=== PATIENT | male | born 1990 | race Caucasian/White ===

== ENCOUNTER 2016-07-13 06:47 | Emergency (ER) | payer BC ==
[2016-07-13 07:02] VITALS: BP 136/76; PULSE 74; RESP 16; TEMP 97.5
[2016-07-13] MEDS ORDERED: KETOROLAC 60 MG/2 ML VIAL IM STA (07:31)
--- NOTE | 2016-07-13 07:35 | ED ---
General Adult HPI - General Chief complaint: Back Pain/Injury Stated complaint: back pain Time Seen by Provider: 07/13/16 07:14 Source: patient, police, RN notes reviewed, old records reviewed Mode of arrival: ambulatory Limitations: no limitations - History of Present Illness Initial comments: This is a 26-year-old male the ER for evaluation. This patient comes in for evaluation of back pain. Patient's neck pain isn't paraspinal lumbar muscles, worse with movement. Worse with bending forward. Worse with sitting up. At about the midpoint of 90. Patient had no trauma, wasn't active accident, while working out. No loss of bowel or bladder, no neurological deficit. Patient has history of similar symptoms which occurred in a basket walking, he did have full testing and with the x-rays. - Related Data Previous Rx's Medication Instructions Recorded Acetaminophen with Codeine 1 tab PO HS PRN #20 tab 07/13/16 [Tylenol w/codeine #3] Diazepam [Valium] 5 mg PO HS #20 tab 07/13/16 Naproxen [Naprosyn] 500 mg PO Q12HR PRN #30 tab 07/13/16 Allergies Allergy/AdvReac Type Severity Reaction Status Date / Time No Known Allergies Allergy Verified 07/13/16 07:03 Review of Systems ROS Statement: Those systems with pertinent positive or pertinent negative responses have been documented in the HPI. ROS Other: All systems not noted in ROS Statement are negative. Past Medical History Past Medical History: No Reported History Past Surgical History: No Surgical Hx Reported Past Psychological History: No Psychological Hx Reported Smoking Status: Never smoker Past Alcohol Use History: None Reported Past Drug Use History: None Reported General Exam Limitations: no limitations General appearance: alert, in no apparent distress Head exam: Present: atraumatic, normocephalic, normal inspection Eye exam: Present: normal appearance, PERRL, EOMI. Absent: scleral icterus, conjunctival injection, periorbital swelling ENT exam: Present: normal exam, mucous membranes moist Neck exam: Present: normal inspection. Absent: tenderness, meningismus, lymphadenopathy Respiratory exam: Present: normal lung sounds bilaterally. Absent: respiratory distress, wheezes, rales, rhonchi, stridor Cardiovascular Exam: Present: regular rate, normal rhythm, normal heart sounds. Absent: systolic murmur, diastolic murmur, rubs, gallop, clicks GI/Abdominal exam: Present: soft, normal bowel sounds. Absent: distended, tenderness, guarding, rebound, rigid Extremities exam: Present: normal inspection, full ROM, normal capillary refill. Absent: tenderness, pedal edema, joint swelling, calf tenderness Back exam: Present: normal inspection Neurological exam: Present: alert, oriented X3, CN II-XII intact Psychiatric exam: Present: normal affect, normal mood Skin exam: Present: warm, dry, intact, normal color. Absent: rash Course Vital Signs 07/13/16 06:58 Temperature 97.5 F L Pulse Rate 74 Respiratory 16 Rate Blood Pressure 136/76 O2 Sat by Pulse 98 Oximetry - Reevaluation(s) Reevaluation #1: 07/13/16 07:34 Patient consult and greater than 15 minutes regarding further evaluation, testing and treatment for chronic back pain. Questions answered Medical Decision Making - Medical Decision Making 26 male ER for evaluation. The patient presents for evaluation of neck pain. Acute and chronic back pain. Pain wall stretching and working out, no trauma, no loss of bowel or bladder no neurological deficit. Sharp stabbing pain middle his back. Patient's pain started was controlled, no neurological deficit patient can be discharged home Disposition Clinical Impression: Sciatica, Strain of lumbar region, Lumbar radiculopathy Disposition: HOME SELF-CARE Condition: Good Instructions: Chronic Back Pain (ED), Acute Low Back Pain (ED) Prescriptions: Acetaminophen with Codeine [Tylenol w/codeine #3] 1 tab PO HS PRN #20 tab PRN Reason: Pain Diazepam [Valium] 5 mg PO HS #20 tab Naproxen [Naprosyn] 500 mg PO Q12HR PRN #30 tab PRN Reason: Pain Referrals: Dora Karimi DO [Doctor of Osteopathic Medicine] - 1-2 days
== END 2016-07-13 07:48 | disposition home or self-care (01) ==
LOC: EC 06:47
DX: M54.16 Radiculopathy, lumbar region (principal); M54.30 Sciatica, unspecified side; S39.012A Strain of muscle, fascia and tendon of lower back, initial encounter; X58.XXXA Exposure to other specified factors, initial encounter
CPT/HCPCS: 99283; 96372; J1885